=== PATIENT | male | born 1965 | race Two or more races ===

== ENCOUNTER 2024-02-18 10:23 | Outpatient (RCR) | payer MEDICAID, SELFPAY ==
[2024-01-26 10:04] LABS: Basophils % (Auto) 1 % (0-2.5); Eosinophils # (Auto) 0.1 Thou/mm3 (0.0-0.5); Eosinophils % (Auto) 1 % (0-10); Hematocrit 37.5 % (41.0-53.0); Immature Granulocytes % (Auto) 0 % (0-0); Immature Granulocytes Auto 0.01 Thou/mm3 (0.00-0.00); Lymphocytes # (Auto) 1.5 Thou/mm3 (1.0-4.8); Lymphocytes % (Auto) 37 % (10-50); Mean Corpuscular HGB Conc 34.7 g/dl (31.0-37.0); Mean Corpuscular Hemoglobin 30.1 pg (25.0-35.0); Mean Corpuscular Volume 87 fL (80-100); Monocytes # (Auto) 0.7 Thou/mm3 (0.0-0.8); Monocytes % (Auto) 18 % (0-12); Neutrophils # (Auto) 1.7 Thou/mm3 (1.8-7.7); Neutrophils % (Auto) 43 % (37-80); Nucleated Red Blood Cell % 0 /100 WBC (0); Platelet Count 111 Thou/mm3 (140-440); RDW Standard Deviation 48.7 fL (35.1-43.9); Red Blood Count 4.32 Miln/mm3 (4.50-5.90); White Blood Count 3.9 Thou/mm3 (3.8-10.6)
[2024-01-26 10:44] LABS: Alanine Aminotransferase 23 U/L (10-49); Albumin, Serum 4.7 gm/dL (3.5-5.0); Albumin/Globulin Ratio 1.6 (1.2-2.2); Alkaline Phosphatase 72 U/L (46-116); Anion Gap 8 (7-16); Aspartate Amino Transferase 21 U/L (0-34); BUN/Creatinine Ratio 18 Ratio (12-20); Blood Urea Nitrogen 16 mg/dL (9-23); Calcium 9.6 mg/dL (8.3-10.6); Calcium (Corrected) 9.6 mg/dL (8.5-10.1); Carbon Dioxide 25.7 mMol/L (20.0-31.0); Chloride 97 mMol/L (98-107); Creatinine (Component) 0.9 mg/dL (0.6-1.3); Globulin 2.9 gm/dL (2.3-3.5); Glucose 117 mg/dL (74-106); Osmolality,Calculated 264 (275-295); Potassium 3.1 mMol/L (3.4-5.1); Sodium 131 mMol/L (136-145); Total Protein 7.6 gm/dL (5.7-8.2); eGFR > 60 See Note
[2024-01-26 10:47] LABS: Carcinoembryonic Antigen 4.7 ng/mL (0.0-5.0)
[2024-02-09 09:06] LABS: Basophils % (Auto) 1 % (0-2.5); Eosinophils % (Auto) 1 % (0-10); Hematocrit 38.2 % (41.0-53.0); Hemoglobin 13.4 g/dL (13.5-16.0); Immature Granulocytes % (Auto) 0 % (0-0); Immature Granulocytes Auto 0.01 Thou/mm3 (0.00-0.00); Lymphocytes # (Auto) 1.3 Thou/mm3 (1.0-4.8); Lymphocytes % (Auto) 44 % (10-50); Mean Corpuscular HGB Conc 35.1 g/dl (31.0-37.0); Mean Corpuscular Hemoglobin 30.6 pg (25.0-35.0); Mean Corpuscular Volume 87 fL (80-100); Monocytes # (Auto) 0.6 Thou/mm3 (0.0-0.8); Monocytes % (Auto) 21 % (0-12); Neutrophils % (Auto) 33 % (37-80); Nucleated Red Blood Cell % 0 /100 WBC (0); Platelet Count 97 Thou/mm3 (140-440); RDW Standard Deviation 48.2 fL (35.1-43.9); Red Blood Count 4.38 Miln/mm3 (4.50-5.90)
[2024-02-09 09:26] LABS: Alanine Aminotransferase 27 U/L (10-49); Albumin, Serum 4.8 gm/dL (3.5-5.0); Albumin/Globulin Ratio 1.7 (1.2-2.2); Alkaline Phosphatase 76 U/L (46-116); Anion Gap 7 (7-16); Aspartate Amino Transferase 24 U/L (0-34); BUN/Creatinine Ratio 20 Ratio (12-20); Blood Urea Nitrogen 16 mg/dL (9-23); Calcium 9.6 mg/dL (8.3-10.6); Calcium (Corrected) 9.6 mg/dL (8.5-10.1); Carbon Dioxide 25.2 mMol/L (20.0-31.0); Chloride 97 mMol/L (98-107); Creatinine (Component) 0.8 mg/dL (0.6-1.3); Globulin 2.9 gm/dL (2.3-3.5); Glucose 108 mg/dL (74-106); Osmolality,Calculated 261 (275-295); Potassium 3.5 mMol/L (3.4-5.1); Sodium 129 mMol/L (136-145); Total Protein 7.7 gm/dL (5.7-8.2); eGFR > 60 See Note
[2024-02-09 09:28] LABS: Carcinoembryonic Antigen 4.8 ng/mL (0.0-5.0)
[2024-02-16 08:56] LABS: Basophils % (Auto) 1 % (0-2.5); Eosinophils # (Auto) 0.1 Thou/mm3 (0.0-0.5); Eosinophils % (Auto) 1 % (0-10); Hematocrit 38.9 % (41.0-53.0); Hemoglobin 13.6 g/dL (13.5-16.0); Immature Granulocytes % (Auto) 3 % (0-0); Immature Granulocytes Auto 0.13 Thou/mm3 (0.00-0.00); Lymphocytes # (Auto) 2.1 Thou/mm3 (1.0-4.8); Lymphocytes % (Auto) 43 % (10-50); Mean Corpuscular Hemoglobin 30.7 pg (25.0-35.0); Mean Corpuscular Volume 88 fL (80-100); Monocytes # (Auto) 0.9 Thou/mm3 (0.0-0.8); Monocytes % (Auto) 18 % (0-12); Neutrophils # (Auto) 1.7 Thou/mm3 (1.8-7.7); Neutrophils % (Auto) 34 % (37-80); Nucleated Red Blood Cell % 0 /100 WBC (0); Platelet Count 163 Thou/mm3 (140-440); RDW Standard Deviation 49.7 fL (35.1-43.9); Red Blood Count 4.43 Miln/mm3 (4.50-5.90); White Blood Count 4.9 Thou/mm3 (3.8-10.6)
[2024-02-16 09:14] LABS: Alanine Aminotransferase 32 U/L (10-49); Albumin, Serum 4.8 gm/dL (3.5-5.0); Albumin/Globulin Ratio 1.7 (1.2-2.2); Alkaline Phosphatase 70 U/L (46-116); Anion Gap 8 (7-16); Aspartate Amino Transferase 27 U/L (0-34); BUN/Creatinine Ratio 20 Ratio (12-20); Bilirubin,Total 0.7 mg/dL (0.3-1.2); Blood Urea Nitrogen 16 mg/dL (9-23); Calcium 9.8 mg/dL (8.3-10.6); Calcium (Corrected) 9.8 mg/dL (8.5-10.1); Carbon Dioxide 24.3 mMol/L (20.0-31.0); Chloride 101 mMol/L (98-107); Creatinine (Component) 0.8 mg/dL (0.6-1.3); Globulin 2.9 gm/dL (2.3-3.5); Glucose 104 mg/dL (74-106); Osmolality,Calculated 267 (275-295); Potassium 3.3 mMol/L (3.4-5.1); Sodium 133 mMol/L (136-145); Total Protein 7.7 gm/dL (5.7-8.2); eGFR > 60 See Note
[2024-02-16 09:15] LABS: Carcinoembryonic Antigen 4.7 ng/mL (0.0-5.0)
== END 2024-02-21 23:59 | disposition home or self-care (01) ==
LOC: SCTC 10:23
PROVIDERS: PCP Family Medicine; Referring Provider Family Medicine; Visit Provider Internal Medicine Hematology & Oncology
DX: Z51.11 Encounter for antineoplastic chemotherapy (principal); C18.7 Malignant neoplasm of sigmoid colon; Z90.49 Acquired absence of other specified parts of digestive tract; R91.8 Other nonspecific abnormal finding of lung field; D50.9 Iron deficiency anemia, unspecified; E11.9 Type 2 diabetes mellitus without complications; E78.00 Pure hypercholesterolemia, unspecified; I10 Essential (primary) hypertension
CPT/HCPCS: 36591; 80053; 82378; 85025; 96366; 96367; 96368; 96372; 96411; 96413; 96415; 96416; A4216; J0640; J1100; J1453; J1642; J2405; J2506; J3490; J7060; J9190; J9263

== ENCOUNTER 2024-03-08 17:59 | Emergency (ER) | payer MEDICAID, SELFPAY ==
[2024-03-08 18:00] VITALS: BMI 30.1
[2024-03-08 18:19] VITALS: BP 165/89; PULSE 105; RESP 18; TEMP 37.1; O2SAT 96
--- NOTE | 2024-03-08 18:28 | EKG_ITS ---
[facility] (Formerly [facility]) Test Date: 2024-03-08 Pat Name: JAKE CORNEJO Department: Room: - Gender: Male Site Project Manager: : 1965 Requested By: ED Temporary Provider Order Number: [id number] Reading MD: ED Temporary Provider Measurements Intervals [place] Rate: 100 P: 47 KS: 161 QRS: 12 QRSD: 106 T: 43 QT: 342 QTc: 442 Interpretive Statements SINUS TACHYCARDIA ABNORMAL RHYTHM ECG Compared to ECG 09/08/2023 09:20:33 Sinus rhythm no longer present Incomplete right bundle-branch block no longer present /store/S0/[id number].pdf
--- NOTE | 2024-03-08 18:30 | XR_ITS ---
Examination: PA lateral chest 2 views Technique: Upright PA lateral chest 2 views Exam date and time: March 08, 2000 2418.9 hours Comparison September 09, 2023 Indications difficulty breathing today. Findings: Normal heart size No pneumonia or pulmonary edema Right subclavian Port-A-Cath tip satisfactory position Impression: No pneumonia or pulmonary edema
--- NOTE | 2024-03-08 18:31 | PD.EDRME ---
Rapid Medical Screening Exam RME Arrival date/time: 03/08/24 17:59 58 year old male present to ED for c/o sob. I have greeted and performed a focused initial assessment of this patient. A comprehensive ED assessment and evaluation of the patient, analysis of all test results, and completion of the medical decision making process will be conducted by additional ED providers. Chief Complaint: Shortness of Breath/Dyspnea Time Seen by Provider: 03/08/24 18:23 Vital signs: Vital Signs Temperature 98.8 F 03/08/24 18:19 Pulse Rate 105 H 03/08/24 18:19 Respiratory Rate 18 03/08/24 18:19 Blood Pressure 165/89 H 03/08/24 18:19 Pulse Oximetry (%) 96 03/08/24 18:19 Oxygen Delivery Method Room Air 03/08/24 18:19
[2024-03-08 19:36] LABS: Basophils % (Auto) 0 % (0-2.5); Eosinophils # (Auto) 0.3 Thou/mm3 (0.0-0.5); Eosinophils % (Auto) 2 % (0-10); Hematocrit 36.1 % (41.0-53.0); Hemoglobin 12.6 g/dL (13.5-16.0); Immature Granulocytes % (Auto) 6 % (0-0); Immature Granulocytes Auto 0.81 Thou/mm3 (0.00-0.00); Lymphocytes # (Auto) 2.3 Thou/mm3 (1.0-4.8); Lymphocytes % (Auto) 17 % (10-50); Mean Corpuscular HGB Conc 34.9 g/dl (31.0-37.0); Mean Corpuscular Hemoglobin 31.3 pg (25.0-35.0); Mean Corpuscular Volume 90 fL (80-100); Monocytes # (Auto) 2.3 Thou/mm3 (0.0-0.8); Monocytes % (Auto) 17 % (0-12); Neutrophils # (Auto) 8.3 Thou/mm3 (1.8-7.7); Neutrophils % (Auto) 59 % (37-80); Nucleated Red Blood Cell # 0.02 Thou/mm3 (0.00-0.00); Nucleated Red Blood Cell % 0 /100 WBC (0); Platelet Count 152 Thou/mm3 (140-440); RDW Standard Deviation 50.1 fL (35.1-43.9); Red Blood Count 4.02 Miln/mm3 (4.50-5.90)
[2024-03-08 19:54] LABS: B-Type Natriuretic Peptide 30 pg/mL (0-100)
[2024-03-08 19:58] LABS: Alanine Aminotransferase 24 U/L (10-49); Albumin, Serum 4.6 gm/dL (3.5-5.0); Albumin/Globulin Ratio 1.5 (1.2-2.2); Alkaline Phosphatase 151 U/L (46-116); Anion Gap 10 (7-16); Aspartate Amino Transferase 24 U/L (0-34); BUN/Creatinine Ratio 17 Ratio (12-20); Bilirubin,Total 0.3 mg/dL (0.3-1.2); Blood Urea Nitrogen 15 mg/dL (9-23); Calcium 9.2 mg/dL (8.3-10.6); Calcium (Corrected) 9.2 mg/dL (8.5-10.1); Carbon Dioxide 24.4 mMol/L (20.0-31.0); Chloride 99 mMol/L (98-107); Creatinine (Component) 0.9 mg/dL (0.6-1.3); Estimated Creatinine Clearance 102.4 mL/min (>60); Globulin 3.1 gm/dL (2.3-3.5); Glucose 119 mg/dL (74-106); Lipase 38 U/L (12-53); Osmolality,Calculated 268 (275-295); Potassium 3.5 mMol/L (3.4-5.1); Sodium 133 mMol/L (136-145); Total Protein 7.7 gm/dL (5.7-8.2); Troponin I < 0.020 ng/mL (0.0-0.045); eGFR > 60 See Note
--- NOTE | 2024-03-08 21:55 | EDNOTE_ITS ---
ED SOB =RME/HPI General Chief Complaint: Shortness of Breath/Dyspnea Stated Complaint: SOB ON GEO Time Seen by Provider: 03/08/24 18:23 Arrival date/time: 03/08/24 17:59 Limitations: no limitations RME / HPI RME / HPI Narrative: 03/08/24 17:59 58 year old male present to ED for c/o sob. I have greeted and performed a focused initial assessment of this patient. A comprehensive ED assessment and evaluation of the patient, analysis of all test results, and completion of the medical decision making process will be conducted by additional ED providers. ----- Dr. Gutierrez's Main ED Evaluation: 58yo male with pmhx hypertension, hyperlipidemia, prediabetes, colon CA s/p resection on chemotherapy presents to the ED for a chief complaint of shortness of breath x 2 days. Patient reports an associated cough, nasal congestion, and a sore throat. He denies any fever, chills, chest pain, abdominal pain or any other associated symptoms. No known allergies. Oncologist is Dr. Anne. Patient was informed that his Neupogen may cause him to experience shortness of breath. Related Data Home Medications ?Medication ?Instructions ?Recorded ?Confirmed atorvastatin 20 mg tablet 20 mg PO QDAY 06/23/23 10/08/23 lisinopril 20 1 tab PO QDAY 06/23/23 10/08/23 mg-hydrochlorothiazide 25 mg tablet Previous Rx's ?Medication ?Instructions ?Recorded albuterol sulfate 90 mcg/actuation 2 inh inhalation Q6H PRN shortness 03/08/24 breath activated powder inhaler of breath #1 ea Allergies Allergy/AdvReac Type Severity Reaction Status Date / Time No Known Allergies Allergy Verified 03/08/24 18:01 Review of Systems Review of Systems Systems Reviewed: All systems reviewed, normal except as documented ED Exam General Limitations: Present no limitations General appearance: Present alert and in no apparent distress Head Head exam: Present atraumatic Eye Eye exam: Present normal appearance, PERRL and EOMI ENT ENT exam: Present normal oropharynx, mucous membranes moist and other (rhinorrhea; clear throat without erythema) Neck Neck exam: Present normal inspection, full ROM and trachea midline Chest Chest inspection: Present normal inspection and symmetric chest wall rise Respiratory Respiratory exam: Present normal lung sounds bilaterally; Absent wheezes or accessory muscle use Cardiovascular Cardiovascular exam: Present regular rate, normal rhythm and normal heart sounds Abdominal Exam Abdominal exam: Present soft and normal bowel sounds Extremities Exam Extremities exam: Present normal inspection and full ROM; Absent pedal edema Back Exam Back exam: Present normal inspection and full ROM Neurological Exam Neurological exam: Present alert, oriented X3 and CN II-XII intact Psychiatric Psychiatric exam: Present normal affect and normal mood Skin Skin exam: Present warm, dry, intact and normal color Course Course Course Narrative: CXR is ordered for determining the etiology of shortness of breath. Quality Measures none Orders Category Date Time Status Bedside COVID-19 Antigen Test NOW Care 03/08/24 18:30 Completed Bedside Influenza A&B Antigen Test NOW Care 03/08/24 18:[address] Screening NOW Care 03/08/24 22:03 Completed EKG (ED ONLY) *Do not use* NOW Care 03/08/24 18:[address] angio chest Stat Exams 03/08/24 22:02 Completed EKG (ED Only) Stat Exams 03/08/24 18:28 Draft XR chest 2V Stat Exams 03/08/24 18:30 Completed BNP [B-Type Natriuretic Peptide] Stat Lab 03/08/24 19:20 Completed CBC Stat Lab 03/08/24 19:20 Completed CMP [Comprehensive Metabolic Panel] Stat Lab 03/08/24 19:20 Completed Lipase Stat Lab 03/08/24 19:20 Completed Troponin I Stat Lab 03/08/24 19:20 Completed Albuterol/Ipratr Rt Xochitl [Duoneb Rt Xochitl] Med 03/08/24 22:04 Discontinued 3 ml INH X1 ONE Vital Signs Vital signs: Vital Signs Temperature 98.8 F 03/08/24 18:19 Pulse Rate 105 H 03/08/24 18:19 Respiratory Rate 18 03/08/24 18:19 Blood Pressure 165/89 H 03/08/24 18:19 Pulse Oximetry (%) 96 03/08/24 18:19 Oxygen Delivery Method Room Air 03/08/24 18:19 Pulse ox is 96% on room air, which is normal according to my interpretation. Shortness of Breath / Dyspnea Patient data External records reviewed:: [facility] previous records (Per chart review, patient was seen here on 06/22/23 for anemia.) Clinical information provided by:: patient Social determinants that could affect healthcare access:: none Patient has the following chronic illnesses:: hypertension, hyperlipidemia, prediabetes, colon CA s/p resection How is presenting disease/condition affected by chronic disease/condition?: uneffected by Evaluation data The following diagnostics were reviewed and interpreted by me:: lab results, r adiology exam(s) and EKG tracing(s) Lab and/or radiology exams considered but not ordered:: none Interpretation Summary: WBC count is elevated at 14.0, Sodium is 133, Troponin is normal, BNP is normal, according to my interpretation. EKG done at 1838, sinus tachycardia, rate of 100, good R wave progression, ST-T changes in lead III, QTc: 391, unchanged from previous EKG done in 08/2023, according to my interpretation. ------ I have personally reviewed the radiology data and agree with the radiologist's interpretation below: [facility] Report Signed Patient: JAKE CORNEJO [employer]. Record#: [id number] Birthdate: 1965 Age/Sex: 58 / M Location: [facility] Attending Dr: Ordering Physician: Robert Lorenz PA-C Date of Service: 03/08/24 Procedure(s): XR chest 2V Accession Number(s): [id number] cc: Dave Machado MD; Michael Hicks MD; Robert Lorenz PA-C~ Examination: PA lateral chest 2 views Technique: Upright PA lateral chest 2 views Exam date and time: March 08, 2000 2418.9 hours Comparison September 09, 2023 Indications difficulty breathing today. Findings: Normal heart size No pneumonia or pulmonary edema Right subclavian Port-A-Cath tip satisfactory position Impression: No pneumonia or pulmonary edema Dictated By: Michael Hicks MD Signed By: <Electronically signed by Michael Hicks MD in [place]> 03/08/242001 ------ [facility] Report Signed Patient: JAKE CORNEJO [employer]. Record#: [id number] Birthdate: 1965 Age/Sex: 58 / M Location: [facility] Attending Dr: Ordering Physician: Marti Velasquez MD Date of Service: 03/08/24 Procedure(s): CT angio chest Accession Number(s): [id number] cc: Dave Machado MD; Michael Hicks MD; Marti Velasquez MD~ Examination: CTA chest with intravenous contrast 2-D reconstructions 3-D reconstructions, vascular Date and time of exam: March 08, 2024 10:28 PM Comparison August 27, 2023 Indications: Diagnosis malignant neoplasm colon, undergoing chemotherapy, chest pain today CTDI: vol (mGy) 24.2 DLP: (mGycm) 541 Technique: Multiple axial sections of the thorax have been obtained. 3 mm slice thickness, from below the hemidiaphragms to above the apices of the lungs. Mediastinal and lung density settings have been obtained. 2-D sagittal and coronal reconstructions. 3-D angiographic renderings, 3-D volume renderings, 3D post processing, vascular maximum intensity projections obtained. Contrast administered is 100 cc Isovue-370 intravenous. Low dose protocols were performed. One or more of the following dose reduction techniques were used; automated exposure control, adjustment of the mA and/or KV according to patient size, use of iterative reconstruction technique. Findings: No thoracic aortic aneurysm dilatation or dissection No pulmonary artery emboli No paratracheal tracheobronchial or bronchopulmonary adenopathy Stable bilateral noncalcified pulmonary nodules No interval pneumonia or pulmonary edema No interval liver lesions No gallstones No pancreatic or adrenal mass Kidneys partially visualized no hydronephrosis Moderate thoracic spondylosis Impression: Negative for pulmonary artery emboli Stable bilateral pulmonary nodules No interval pneumonia or pulmonary edema Dictated By: Michael Hicks MD Signed By: <Electronically signed by Michael Hicks MD in OV> 03/08/24 1358 Medications / Prescriptions Medications or Prescriptions considered but not ordered:: none Medication administrations:: Medication Administration History Discontinued Medications Albuterol/Ipratropium (Albuterol/Ipratropium (Duoneb) Rt Xochitl 3 Ml Nebu) 3 ml INH X1 ONE Stop: 03/08/24 22:05 Last Admin: 03/08/24 22:39 Dose: 3 ml Documented By: HALLEY see above Consultations Consultation(s) initiated? (list below): No Diagnosis Shortness of Breath Differential Diagnosis: community acquired pneumonia, pulmonary embolism and other (bacteremia) Most likely diagnosis given after review of the tests above:: see below Admission Indicated Admission indicated?: not indicated Admission Request Was there a request for admission?: No Disposition Plan Disposition Plan: Discharge Discharge Attestation Discharge Attestation: The patient and all family members were given an opportunity to ask questions and understood the discharge instructions. Discharge instructions specifically effects, indications for sooner follow up or return to the emergency department, and the expected course of current diagnosis. Patient condition: Stable Critical Care Time Critical Care Time Critical Care Time: Yes Total Critical Care Time (min.): 35 Attestation: The high probability of sudden, clinically significant deterioration in the patient?s condition required the highest level of my preparedness to intervene urgently. The services I provided to this patient were to treat and/or prevent clinically significant deterioration. Services included the following: chart data review, reviewing nursing notes and/or old charts, documentation time, bilingual sales consultant collaboration regarding findings and treatment options, medication orders and management, direct patient care, vital sign assessments and ordering, interpreting and reviewing diagnostic studies and lab tests. Aggregate critical care time includes only time during which I was engaged in work directly related to the patient?s care, as described above, whether at bedside or elsewhere in the Emergency Department. It did not include time spent performing other reported procedures or the services of residents, students, nurses or physician assistants. Discharge Plan Plan Patient Disposition: HOME (Self Care) Patient condition on transfer: Stable Prescriptions/Referrals Prescriptions/Med Rec: New albuterol sulfate 90 mcg/actuation aerosol powdr breath activated 2 inh inhalation Q6H PRN (Reason: shortness of breath) Qty: 1 0RF No Action atorvastatin 20 mg Tablet 20 mg PO QDAY lisinopril-hydrochlorothiazide 20-25 mg Tablet 1 tab PO QDAY Referrals: Dave Machado MD [Primary Care Provider] - 03/11/24 Problem List Clinical Impression: URI (upper respiratory infection) Patient/Caregiver Discharge Instructions Education Materials: ED URI, Viral, No Abx (Adult) Additional Instructions: You can use the inhaler as needed. For congestion. You could also take [id number] cough medicine. Please return to the emergency department for any worsening symptoms, fever greater than 102, you feel worse, dizzy, chest pain, shortness of breath, or any other concerns. Please see your doctor know that you were seen here in the emergency department. Print Language: Mongolian Stand Alone Forms: Kristi Award Info., Patient Portal Info Letter
--- NOTE | 2024-03-08 22:02 | XR_ITS ---
Examination: CTA chest with intravenous contrast 2-D reconstructions 3-D reconstructions, vascular Date and time of exam: March 08, 2024 10:28 PM Comparison August 27, 2023 Indications: Diagnosis malignant neoplasm colon, undergoing chemotherapy, chest pain today CTDI: vol (mGy) 24.2 DLP: (mGycm) 541 Technique: Multiple axial sections of the thorax have been obtained. 3 mm slice thickness, from below the hemidiaphragms to above the apices of the lungs. Mediastinal and lung density settings have been obtained. 2-D sagittal and coronal reconstructions. 3-D angiographic renderings, 3-D volume renderings, 3D post processing, vascular maximum intensity projections obtained. Contrast administered is 100 cc Isovue-370 intravenous. Low dose protocols were performed. One or more of the following dose reduction techniques were used; automated exposure control, adjustment of the mA and/or KV according to patient size, use of iterative reconstruction technique. Findings: No thoracic aortic aneurysm dilatation or dissection No pulmonary artery emboli No paratracheal tracheobronchial or bronchopulmonary adenopathy Stable bilateral noncalcified pulmonary nodules No interval pneumonia or pulmonary edema No interval liver lesions No gallstones No pancreatic or adrenal mass Kidneys partially visualized no hydronephrosis Moderate thoracic spondylosis Impression: Negative for pulmonary artery emboli Stable bilateral pulmonary nodules No interval pneumonia or pulmonary edema
[2024-03-08 22:09] VITALS: BP 160/94; PULSE 109; RESP 19; TEMP 36.8; O2SAT 98
--- NOTE | 2024-03-08 22:28 | PC.NURSE ---
Pt taken to CT.
[2024-03-08] MEDS: ALBUTEROL/IPRATROPIUM (Duoneb) RT SOL 3 ML NEBU INH (22:39)
[2024-03-08 22:42] VITALS: PULSE 103; RESP 20; O2SAT 99
[2024-03-08 23:31] VITALS: RESP 18
== END 2024-03-08 23:33 | disposition home or self-care (01) ==
PROVIDERS: Physician Assistant; Emergency Provider Emergency Medicine; PCP Family Medicine
DX: J06.9 Acute upper respiratory infection, unspecified (principal); R91.8 Other nonspecific abnormal finding of lung field; R00.0 Tachycardia, unspecified; I10 Essential (primary) hypertension
CPT/HCPCS: 36415; 71046; 71275; 80053; 83690; 83880; 84484; 85025; 87400; 87811; 93005; 94640; 99285; A4649; A9270; Q9967

== ENCOUNTER 2024-03-18 11:29 | Outpatient (RCR) | payer MEDICAID, SELFPAY ==
--- NOTE | 2024-02-25 05:34 | CTCFLWUP_ITS ---
Patient: JAKE BOONE : 1965 Page 6 of 6 FOLLOW UP NOTE DATE OF SERVICE 02/24/2024 NAME: JAKE BOONE ACCOUNT: [id number] : 1965 AGE: 58 DIAGNOSIS: Stage IIIc (pT3, PN 2, MX), MMR proficient, well-differentiated adenocarcinoma of the sigm oid colon. S/p sigmoid colectomy (06/25/2023) on adjuvant chemotherapy here for follow-up .patient is on cycle 9 treatment Abdominal wall incision is healed by secondary intention. CT-guided biopsy of the lung nodule is negative for malignancy (10/08/2023). Currently on adjuvant chemotherapy with modified FOLFOX 6 (10/27/2023) Multiple pulmonary nodules (08/27/2023) Type 2 diabetes. Hypercholesterolemia. Hypertension. REASON FOR TODAY?S VISIT: This is office follow-up visit. Mr. Boone is here at [facility]. He is clinically doing very well. So far he had 8 cycles of modified FOLFOX 6. Tolerated very well. He is scheduled to receive a total of 12 cycles in the adjuvant sett ing. Did not have any significant side effects. Did not have any nausea, vomiting or diarrhea. Did not have any significant tingling numbness in the fingers or feet. Has good appetite and good energy levels. Ambulating well without any help. HISTORY OF PRESENT ILLNESS: Jake Boone is a 58-year-old SPA speaking male with hi story of type 2 diabetes, hypertension, hypercholesterolemia has been having rectal bleeding since 2022. 06/21/2023: Mr. Boone was seen in the emergency room here at [facility] because of for rectal bleeding. He was admitted to the hospital. 06/22/2023: CT scan of the abdomen and pelvis with IV contrast 06/23/2023: Mr. Boone had a colonoscopy which showed a partially obstructing tumor in the sigm oid colon. Biopsies were taken. 06/25/2023: Mr. Boone had sigmoid colectomy 06/26/2023: CEA 1.7. 07/16/2023: Hemoglobin 9.8, MCV 88, WBC 9.8, ANC 7.2, platelets 425,000, creatinine 0.66, AST 23, ALT 115, iron saturation 6%, folate 18 point, CEA 4.0, B12 638, ferritin 50. 07/31/2023: PET/CT scan? 08/27/2023: CT scan of the chest without IV contrast 10/08/2023: CT-guided biopsy of the left lower lobe pulmonary nodule? 10/27/2023: The patient is started on adjuvant modified FOLFOX 6 PAST MEDICAL HISTORY: Adenocarcinoma sigmoid colon - dx 06/23/23 Hyperlipidemia HTN PAST SURGICAL HISTORY: Sigmoid colectomy wtih incidental appendectomy - 06/25/23 - [facility] MEDICATIONS: 1. atorvastatin - 20 mg 1 tab Daily 2. docusate sodium - 100 mg 1 tab Every 12 Hours 3. hydrocodone-acetaminophen - 5-325 mg 1 tab Every 6 Hours 4. lisinopril-hydrochlorothiazide - 20-25 mg 1 tab Daily Medications Last Reconciled by Lay Guy MD on 11/18/2023 ALLERGIES: No Known Drug Allergies REVIEW OF SYSTEMS: Neurological: No headache, seizures or blurring of vision. Gastrointestinal: No nausea, vomiting, diarrhea or constipation. Cardiovascular: No palpitations or angina pains. Respiratory: No cough, chest pain or shortness of breath. PHYSICAL EXAMINATION: VITAL SIGNS: Temperature?99.6, B/P?168/95, Oxygen?Saturation?98% Weight?213?lbs (Change?since?11/12/23 :?-7.2?lbs) PAIN: 0 - No pain Alert oriented x 4 MOUTH: Oral cavity is dry. CHEST: Clear to auscultation. No wheezes or rales audible. CARDIAC: Rhythm regular, no murmurs or gallops present. ABDOMEN: Soft. No hepatomegaly. No splenomegaly. About 2 inches long wide open surgical wound is pre sent below the umbilicus. It is packed with a gauze at this time. EXTREMITIES: No pedal edema or cyanosis. ASSESSMENT: #1 stage III colon cancer on adjuvant therapy Patient is on cycle 9 of chemotherapy patient will be continued on chemotherapy with FOLFOX Mr. Boone is started on adjuvant modified FOLFOX 6 on 10/27/2023. The plan is to give him a t otal of 12 cycles in the adjuvant setting. CT-guided biopsy of the left lower lobe pulmonary nodule negative for malignancy. Multiple pulmonary nodules as documented on the CT scan of the chest without contrast. Patient is obtaining chemo through her port Stage IIIc (pT3, PN 2, MX), MMR proficient well-differentiated adenocarcinoma of the sigmoid colon. S/p sigmoid colectomy (06/25/2023) #2 iron deficiency anemia. Stable. #3 type 2 diabetes. Stable follow with the PCP #4 hypercholesterolemia stable follow with the PCP. #5 hypertension stable follow-up with PCP. RTC to the clinic with a CBC CMP and CEA Will do CT scan once patient has completed all the chemotherapy Electronically Signed by: {Object.Sanct_ID*PnP.NameFL@M}, {Object.Sanct_ID*PnP.Suffix@U} D: {Object.Sanct_Date} T: {Object.Sanct_Time} CC: PCP: Dave Machado Referring: Dave Machado This document was completed utilizing speech recognition software. Grammatical errors, random word in sertions, pronoun errors, and incomplete sentences are an occasional consequence of this system due t o software limitations, ambient noise, and hardware issues. Any formal questions or concerns about th e content, text or information contained within the body of this dictation should be directly address ed to the provider for clarification.
[2024-02-27 11:34] LABS: Basophils # (Auto) 0.1 Thou/mm3 (0.0-0.2); Basophils % (Auto) 1 % (0-2.5); Eosinophils # (Auto) 0.1 Thou/mm3 (0.0-0.5); Eosinophils % (Auto) 1 % (0-10); Immature Granulocytes % (Auto) 10 % (0-0); Immature Granulocytes Auto 0.93 Thou/mm3 (0.00-0.00); Lymphocytes # (Auto) 2.2 Thou/mm3 (1.0-4.8); Lymphocytes % (Auto) 23 % (10-50); Mean Corpuscular HGB Conc 34.2 g/dl (31.0-37.0); Mean Corpuscular Hemoglobin 30.8 pg (25.0-35.0); Mean Corpuscular Volume 90 fL (80-100); Monocytes # (Auto) 0.9 Thou/mm3 (0.0-0.8); Monocytes % (Auto) 9 % (0-12); Neutrophils # (Auto) 5.3 Thou/mm3 (1.8-7.7); Neutrophils % (Auto) 56 % (37-80); Nucleated Red Blood Cell % 0 /100 WBC (0); Platelet Count 118 Thou/mm3 (140-440); RDW Standard Deviation 50.4 fL (35.1-43.9); Red Blood Count 4.22 Miln/mm3 (4.50-5.90); White Blood Count 9.5 Thou/mm3 (3.8-10.6)
[2024-02-27 11:58] LABS: Alanine Aminotransferase 36 U/L (10-49); Albumin, Serum 4.8 gm/dL (3.5-5.0); Albumin/Globulin Ratio 1.6 (1.2-2.2); Alkaline Phosphatase 118 U/L (46-116); Anion Gap 11 (7-16); Aspartate Amino Transferase 25 U/L (0-34); BUN/Creatinine Ratio 16 Ratio (12-20); Bilirubin,Total 0.5 mg/dL (0.3-1.2); Blood Urea Nitrogen 13 mg/dL (9-23); Calcium 9.2 mg/dL (8.3-10.6); Calcium (Corrected) 9.2 mg/dL (8.5-10.1); Carbon Dioxide 24.9 mMol/L (20.0-31.0); Chloride 97 mMol/L (98-107); Creatinine (Component) 0.8 mg/dL (0.6-1.3); Glucose 108 mg/dL (74-106); Osmolality,Calculated 267 (275-295); Potassium 3.3 mMol/L (3.4-5.1); Sodium 133 mMol/L (136-145); Total Protein 7.8 gm/dL (5.7-8.2); eGFR > 60 See Note
[2024-02-27 12:02] LABS: Carcinoembryonic Antigen 3.6 ng/mL (0.0-5.0)
[2024-03-15 11:02] LABS: Basophils # (Auto) 0.1 Thou/mm3 (0.0-0.2); Basophils % (Auto) 1 % (0-2.5); Eosinophils # (Auto) 0.1 Thou/mm3 (0.0-0.5); Eosinophils % (Auto) 1 % (0-10); Hematocrit 38.3 % (41.0-53.0); Hemoglobin 13.1 g/dL (13.5-16.0); Immature Granulocytes % (Auto) 2 % (0-0); Immature Granulocytes Auto 0.14 Thou/mm3 (0.00-0.00); Lymphocytes # (Auto) 1.7 Thou/mm3 (1.0-4.8); Lymphocytes % (Auto) 24 % (10-50); Mean Corpuscular HGB Conc 34.2 g/dl (31.0-37.0); Mean Corpuscular Hemoglobin 30.9 pg (25.0-35.0); Mean Corpuscular Volume 90 fL (80-100); Monocytes # (Auto) 0.7 Thou/mm3 (0.0-0.8); Monocytes % (Auto) 9 % (0-12); Neutrophils # (Auto) 4.4 Thou/mm3 (1.8-7.7); Neutrophils % (Auto) 62 % (37-80); Nucleated Red Blood Cell % 0 /100 WBC (0); Platelet Count 88 Thou/mm3 (140-440); RDW Standard Deviation 50.9 fL (35.1-43.9); Red Blood Count 4.24 Miln/mm3 (4.50-5.90); White Blood Count 7.1 Thou/mm3 (3.8-10.6)
[2024-03-15 11:15] LABS: Alanine Aminotransferase 34 U/L (10-49); Albumin, Serum 4.5 gm/dL (3.5-5.0); Albumin/Globulin Ratio 1.5 (1.2-2.2); Alkaline Phosphatase 111 U/L (46-116); Anion Gap 9 (7-16); Aspartate Amino Transferase 35 U/L (0-34); BUN/Creatinine Ratio 16 Ratio (12-20); Bilirubin,Total 0.5 mg/dL (0.3-1.2); Blood Urea Nitrogen 18 mg/dL (9-23); Calcium 9.6 mg/dL (8.3-10.6); Calcium (Corrected) 9.6 mg/dL (8.5-10.1); Carbon Dioxide 25.5 mMol/L (20.0-31.0); Chloride 100 mMol/L (98-107); Creatinine (Component) 1.1 mg/dL (0.6-1.3); Glucose 136 mg/dL (74-106); Osmolality,Calculated 272 (275-295); Potassium 3.4 mMol/L (3.4-5.1); Sodium 134 mMol/L (136-145); Total Protein 7.5 gm/dL (5.7-8.2); eGFR > 60 See Note
[2024-03-15 11:17] LABS: Carcinoembryonic Antigen 3.8 ng/mL (0.0-5.0)
== END 2024-03-23 23:59 | disposition home or self-care (01) ==
LOC: SCTC 11:29
PROVIDERS: PCP Family Medicine; Referring Provider Family Medicine; Visit Provider Internal Medicine Hematology & Oncology
DX: Z51.11 Encounter for antineoplastic chemotherapy (principal); C18.7 Malignant neoplasm of sigmoid colon; Z90.49 Acquired absence of other specified parts of digestive tract; R91.8 Other nonspecific abnormal finding of lung field; D50.9 Iron deficiency anemia, unspecified; E11.9 Type 2 diabetes mellitus without complications; E78.00 Pure hypercholesterolemia, unspecified; I10 Essential (primary) hypertension
CPT/HCPCS: 36591; 80053; 82378; 85025; 96366; 96367; 96368; 96372; 96374; 96411; 96413; 96415; 96416; 99213; A4216; J0640; J1100; J1453; J1642; J2405; J2506; J3490; J9190; J9263; G0463

== ENCOUNTER 2024-04-23 08:24 | Outpatient (RCR) | payer MEDICAID, SELFPAY ==
[2024-03-29 10:08] LABS: Basophils # (Auto) 0.1 Thou/mm3 (0.0-0.2); Basophils % (Auto) 1 % (0-2.5); Eosinophils # (Auto) 0.2 Thou/mm3 (0.0-0.5); Eosinophils % (Auto) 2 % (0-10); Hematocrit 37.6 % (41.0-53.0); Hemoglobin 13.2 g/dL (13.5-16.0); Immature Granulocytes % (Auto) 2 % (0-0); Immature Granulocytes Auto 0.23 Thou/mm3 (0.00-0.00); Lymphocytes # (Auto) 2.1 Thou/mm3 (1.0-4.8); Lymphocytes % (Auto) 20 % (10-50); Mean Corpuscular HGB Conc 35.1 g/dl (31.0-37.0); Mean Corpuscular Hemoglobin 31.4 pg (25.0-35.0); Mean Corpuscular Volume 90 fL (80-100); Monocytes % (Auto) 9 % (0-12); Neutrophils # (Auto) 6.9 Thou/mm3 (1.8-7.7); Neutrophils % (Auto) 66 % (37-80); Nucleated Red Blood Cell % 0 /100 WBC (0); Platelet Count 107 Thou/mm3 (140-440); RDW Standard Deviation 50.2 fL (35.1-43.9); White Blood Count 10.5 Thou/mm3 (3.8-10.6)
[2024-03-29 10:40] LABS: Alanine Aminotransferase 39 U/L (10-49); Albumin, Serum 4.6 gm/dL (3.5-5.0); Albumin/Globulin Ratio 1.4 (1.2-2.2); Alkaline Phosphatase 126 U/L (46-116); Anion Gap 9 (7-16); Aspartate Amino Transferase 48 U/L (0-34); BUN/Creatinine Ratio 14 Ratio (12-20); Bilirubin,Total 0.6 mg/dL (0.3-1.2); Blood Urea Nitrogen 13 mg/dL (9-23); Calcium 9.1 mg/dL (8.3-10.6); Calcium (Corrected) 9.1 mg/dL (8.5-10.1); Chloride 96 mMol/L (98-107); Creatinine (Component) 0.9 mg/dL (0.6-1.3); Globulin 3.4 gm/dL (2.3-3.5); Glucose 132 mg/dL (74-106); Osmolality,Calculated 266 (275-295); Potassium 2.9 mMol/L (3.4-5.1); Sodium 132 mMol/L (136-145); eGFR > 60 See Note
[2024-03-30 09:25] LABS: Potassium 3.5 mMol/L (3.4-5.1)
[2024-03-30 11:32] LABS: Glucose Estimated Average 126 mg/dL (80-131)
[2024-04-12 16:23] LABS: Basophils % (Auto) 1 % (0-2.5); Eosinophils # (Auto) 0.1 Thou/mm3 (0.0-0.5); Eosinophils % (Auto) 2 % (0-10); Hematocrit 37.4 % (41.0-53.0); Immature Granulocytes % (Auto) 0 % (0-0); Immature Granulocytes Auto 0.01 Thou/mm3 (0.00-0.00); Lymphocytes # (Auto) 1.4 Thou/mm3 (1.0-4.8); Lymphocytes % (Auto) 28 % (10-50); Mean Corpuscular HGB Conc 34.8 g/dl (31.0-37.0); Mean Corpuscular Hemoglobin 30.9 pg (25.0-35.0); Mean Corpuscular Volume 89 fL (80-100); Monocytes # (Auto) 1.1 Thou/mm3 (0.0-0.8); Monocytes % (Auto) 21 % (0-12); Neutrophils # (Auto) 2.5 Thou/mm3 (1.8-7.7); Neutrophils % (Auto) 48 % (37-80); Nucleated Red Blood Cell % 0 /100 WBC (0); Platelet Count 103 Thou/mm3 (140-440); RDW Standard Deviation 48.2 fL (35.1-43.9); Red Blood Count 4.21 Miln/mm3 (4.50-5.90); White Blood Count 5.1 Thou/mm3 (3.8-10.6)
[2024-04-12 16:43] LABS: Carcinoembryonic Antigen 4.2 ng/mL (0.0-5.0)
[2024-04-12 16:48] LABS: Alanine Aminotransferase 33 U/L (10-49); Albumin, Serum 4.7 gm/dL (3.5-5.0); Albumin/Globulin Ratio 1.3 (1.2-2.2); Alkaline Phosphatase 80 U/L (46-116); Anion Gap 13 (7-16); Aspartate Amino Transferase 44 U/L (0-34); BUN/Creatinine Ratio 21 Ratio (12-20); Blood Urea Nitrogen 17 mg/dL (9-23); Calcium 9.6 mg/dL (8.3-10.6); Calcium (Corrected) 9.6 mg/dL (8.5-10.1); Carbon Dioxide 24.1 mMol/L (20.0-31.0); Chloride 94 mMol/L (98-107); Creatinine (Component) 0.8 mg/dL (0.6-1.3); Globulin 3.5 gm/dL (2.3-3.5); Glucose 96 mg/dL (74-106); Osmolality,Calculated 264 (275-295); Potassium 2.8 mMol/L (3.4-5.1); Sodium 131 mMol/L (136-145); Total Protein 8.2 gm/dL (5.7-8.2); eGFR > 60 See Note
[2024-04-13 10:22] LABS: Potassium 3.5 mMol/L (3.4-5.1)
[2024-04-15 12:06] LABS: Alanine Aminotransferase 53 U/L (10-49); Albumin, Serum 4.5 gm/dL (3.5-5.0); Albumin/Globulin Ratio 1.4 (1.2-2.2); Alkaline Phosphatase 71 U/L (46-116); Anion Gap 9 (7-16); Aspartate Amino Transferase 60 U/L (0-34); BUN/Creatinine Ratio 26 Ratio (12-20); Blood Urea Nitrogen 21 mg/dL (9-23); Calcium 9.6 mg/dL (8.3-10.6); Calcium (Corrected) 9.6 mg/dL (8.5-10.1); Carbon Dioxide 24.7 mMol/L (20.0-31.0); Chloride 95 mMol/L (98-107); Creatinine (Component) 0.8 mg/dL (0.6-1.3); Globulin 3.3 gm/dL (2.3-3.5); Glucose 96 mg/dL (74-106); Osmolality,Calculated 261 (275-295); Potassium 3.1 mMol/L (3.4-5.1); Sodium 129 mMol/L (136-145); Total Protein 7.8 gm/dL (5.7-8.2); eGFR > 60 See Note
[2024-04-23 09:12] LABS: Basophils % (Auto) 1 % (0-2.5); Eosinophils % (Auto) 1 % (0-10); Hematocrit 35.9 % (41.0-53.0); Hemoglobin 12.8 g/dL (13.5-16.0); Immature Granulocytes % (Auto) 0 % (0-0); Immature Granulocytes Auto 0.02 Thou/mm3 (0.00-0.00); Lymphocytes # (Auto) 1.2 Thou/mm3 (1.0-4.8); Lymphocytes % (Auto) 20 % (10-50); Mean Corpuscular HGB Conc 35.7 g/dl (31.0-37.0); Mean Corpuscular Hemoglobin 31.5 pg (25.0-35.0); Mean Corpuscular Volume 88 fL (80-100); Monocytes # (Auto) 0.8 Thou/mm3 (0.0-0.8); Monocytes % (Auto) 13 % (0-12); Neutrophils % (Auto) 67 % (37-80); Nucleated Red Blood Cell % 0 /100 WBC (0); Platelet Count 107 Thou/mm3 (140-440); RDW Standard Deviation 46.5 fL (35.1-43.9); Red Blood Count 4.06 Miln/mm3 (4.50-5.90); White Blood Count 6.1 Thou/mm3 (3.8-10.6)
[2024-04-23 09:43] LABS: Alanine Aminotransferase 54 U/L (10-49); Albumin, Serum 4.5 gm/dL (3.5-5.0); Albumin/Globulin Ratio 1.3 (1.2-2.2); Alkaline Phosphatase 81 U/L (46-116); Anion Gap 12 (7-16); Aspartate Amino Transferase 60 U/L (0-34); BUN/Creatinine Ratio 20 Ratio (12-20); Bilirubin,Total 0.8 mg/dL (0.3-1.2); Blood Urea Nitrogen 18 mg/dL (9-23); Calcium 9.4 mg/dL (8.3-10.6); Calcium (Corrected) 9.4 mg/dL (8.5-10.1); Carbon Dioxide 23.9 mMol/L (20.0-31.0); Chloride 96 mMol/L (98-107); Creatinine (Component) 0.9 mg/dL (0.6-1.3); Globulin 3.6 gm/dL (2.3-3.5); Glucose 147 mg/dL (74-106); Osmolality,Calculated 269 (275-295); Potassium 2.9 mMol/L (3.4-5.1); Sodium 132 mMol/L (136-145); Total Protein 8.1 gm/dL (5.7-8.2); eGFR > 60 See Note
[2024-04-23 09:44] LABS: Carcinoembryonic Antigen 4.7 ng/mL (0.0-5.0)
[2024-04-26 11:12] LABS: Alanine Aminotransferase 41 U/L (10-49); Albumin, Serum 4.5 gm/dL (3.5-5.0); Albumin/Globulin Ratio 1.2 (1.2-2.2); Alkaline Phosphatase 90 U/L (46-116); Anion Gap 9 (7-16); Aspartate Amino Transferase 55 U/L (0-34); BUN/Creatinine Ratio 20 Ratio (12-20); Bilirubin,Total 0.6 mg/dL (0.3-1.2); Blood Urea Nitrogen 16 mg/dL (9-23); Calcium 9.5 mg/dL (8.3-10.6); Calcium (Corrected) 9.5 mg/dL (8.5-10.1); Carbon Dioxide 27.3 mMol/L (20.0-31.0); Chloride 94 mMol/L (98-107); Creatinine (Component) 0.8 mg/dL (0.6-1.3); Globulin 3.8 gm/dL (2.3-3.5); Glucose 139 mg/dL (74-106); Osmolality,Calculated 264 (275-295); Potassium 2.8 mMol/L (3.4-5.1); Sodium 130 mMol/L (136-145); Total Protein 8.3 gm/dL (5.7-8.2); eGFR > 60 See Note
[2024-04-26 13:55] LABS: Alanine Aminotransferase 39 U/L (10-49); Albumin, Serum 4.4 gm/dL (3.5-5.0); Albumin/Globulin Ratio 1.2 (1.2-2.2); Alkaline Phosphatase 87 U/L (46-116); Anion Gap 9 (7-16); Aspartate Amino Transferase 50 U/L (0-34); BUN/Creatinine Ratio 20 Ratio (12-20); Bilirubin,Total 0.6 mg/dL (0.3-1.2); Blood Urea Nitrogen 14 mg/dL (9-23); Carbon Dioxide 26.2 mMol/L (20.0-31.0); Chloride 95 mMol/L (98-107); Creatinine (Component) 0.7 mg/dL (0.6-1.3); Globulin 3.6 gm/dL (2.3-3.5); Glucose 96 mg/dL (74-106); Osmolality,Calculated 261 (275-295); Potassium 3.1 mMol/L (3.4-5.1); Sodium 130 mMol/L (136-145); eGFR > 60 See Note
== END 2024-04-23 23:59 | disposition home or self-care (01) ==
LOC: SCTC 08:24
PROVIDERS: PCP Family Medicine; Referring Provider Family Medicine; Visit Provider Internal Medicine Hematology & Oncology
DX: Z51.11 Encounter for antineoplastic chemotherapy (principal); C18.7 Malignant neoplasm of sigmoid colon; Z90.49 Acquired absence of other specified parts of digestive tract; R91.8 Other nonspecific abnormal finding of lung field; D50.9 Iron deficiency anemia, unspecified; E11.9 Type 2 diabetes mellitus without complications; E78.00 Pure hypercholesterolemia, unspecified; I10 Essential (primary) hypertension
CPT/HCPCS: 36591; 80053; 82378; 83036; 84132; 85025; 96366; 96367; 96368; 96411; 96413; 96415; 96416; A4216; J0640; J1100; J1453; J1642; J2405; J7050; J7060; J9190; J9263

== ENCOUNTER 2024-04-27 07:02 | Outpatient (RCR) | payer MEDICAID, SELFPAY ==
[2024-04-27 07:49] LABS: Alanine Aminotransferase 40 U/L (10-49); Albumin, Serum 4.4 gm/dL (3.5-5.0); Albumin/Globulin Ratio 1.2 (1.2-2.2); Alkaline Phosphatase 88 U/L (46-116); Anion Gap 9 (7-16); Aspartate Amino Transferase 52 U/L (0-34); BUN/Creatinine Ratio 13 Ratio (12-20); Bilirubin,Total 0.7 mg/dL (0.3-1.2); Blood Urea Nitrogen 10 mg/dL (9-23); Calcium 9.3 mg/dL (8.3-10.6); Calcium (Corrected) 9.3 mg/dL (8.5-10.1); Carbon Dioxide 26.3 mMol/L (20.0-31.0); Chloride 94 mMol/L (98-107); Creatinine (Component) 0.8 mg/dL (0.6-1.3); Globulin 3.6 gm/dL (2.3-3.5); Glucose 105 mg/dL (74-106); Osmolality,Calculated 257 (275-295); Potassium 3.2 mMol/L (3.4-5.1); Sodium 129 mMol/L (136-145); eGFR > 60 See Note
[2024-04-30 06:44] LABS: ACTH, Plasma* 20 pg/mL (6-50)
[2024-05-03 06:43] LABS: Aldosterone* 5 ng/dL
== END 2024-05-21 23:59 | disposition home or self-care (01) ==
LOC: SCTC 07:02
PROVIDERS: PCP Family Medicine; Referring Provider Family Medicine; Visit Provider Internal Medicine Hematology & Oncology
DX: E87.6 Hypokalemia (principal); C18.7 Malignant neoplasm of sigmoid colon; Z90.49 Acquired absence of other specified parts of digestive tract; Z92.21 Personal history of antineoplastic chemotherapy; D50.9 Iron deficiency anemia, unspecified; E11.9 Type 2 diabetes mellitus without complications; E78.00 Pure hypercholesterolemia, unspecified; I10 Essential (primary) hypertension
CPT/HCPCS: 36591; 80053; 82024; 82088; 96360; A4216; J1642; J7030

== ENCOUNTER 2024-06-30 12:20 | Day surgery (SDC) | payer MEDICAID, SELFPAY ==
[2024-06-30] VITALS (11 sets, daily range): BP systolic 119–143; BP diastolic 69–95; PULSE 63–97; RESP 12–25; TEMP 36.9–37; O2SAT 10–100; BMI 30.1
[2024-06-30] MEDS: RINGERS LACTATED 1000 ML 1,000 ML 125 ML IV (13:47)
[2024-06-30] MEDS: fentaNYL CIT INJ 50 mCg/ML AMP 2ML (ASD USE ONLY) IV (13:54)
[2024-06-30] MEDS: MIDAZOLAM INJ 1 MG/ML VIAL 2 ML (ASD USE ONLY) 2 MG IV (13:56)
== END 2024-06-30 14:52 | disposition home or self-care (01) ==
PROVIDERS: PCP Family Medicine; Referring Provider Surgery; Visit Provider Surgery
PROC: 0DBE8ZX Excision of Large Intestine, Via Natural or Artificial Opening Endoscopic, Diagnostic (ICD-10-PCS; CPT 45380; principal; 2024-06-30 13:00)
DX: Z12.11 Encounter for screening for malignant neoplasm of colon (principal)
CPT/HCPCS: 45378; A4217; J2250; J3010; J7120

== ENCOUNTER 2024-07-10 09:29 | Emergency (ER) | payer MEDICAID, SELFPAY ==
[2024-07-10 09:31] VITALS: BMI 30.8
[2024-07-10 09:48] VITALS: BP 175/84; PULSE 90; RESP 18; TEMP 36.7; O2SAT 98
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
[2024-07-10] MEDS: LIDOCAINE HCL 1% 20 ML VIAL INFL (11:23)
== END 2024-07-10 11:29 | disposition home or self-care (01) ==
PROVIDERS: Emergency Provider Emergency Medicine; PCP Family Medicine
DX: S01.81XA Laceration without foreign body of other part of head, initial encounter (principal); V49.40XA Driver injured in collision with unspecified motor vehicles in traffic accident, initial encounter
CPT/HCPCS: 12013; 70450; 99284; J3490

== ENCOUNTER 2024-07-13 14:47 | Outpatient (RCR) | payer MEDICAID, SELFPAY ==
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
== END 2024-07-21 23:59 | disposition home or self-care (01) ==
LOC: SCTC 14:47
PROVIDERS: PCP Family Medicine; Referring Provider Family Medicine; Visit Provider Internal Medicine Hematology & Oncology
DX: Z08 Encounter for follow-up examination after completed treatment for malignant neoplasm (principal); Z85.038 Personal history of other malignant neoplasm of large intestine; Z90.49 Acquired absence of other specified parts of digestive tract; Z92.21 Personal history of antineoplastic chemotherapy; R91.8 Other nonspecific abnormal finding of lung field; Z86.2 Personal history of diseases of the blood and blood-forming organs and certain disorders involving the immune mechanism; E11.9 Type 2 diabetes mellitus without complications; E78.00 Pure hypercholesterolemia, unspecified; I10 Essential (primary) hypertension
CPT/HCPCS: 99213; G0463

== ENCOUNTER 2024-08-05 07:09 | Outpatient (RCR) | payer MEDICAID, SELFPAY ==
[2024-08-05 09:29] VITALS: BMI 30.7
== END 2024-08-21 23:59 | disposition home or self-care (01) ==
LOC: SCTC 07:09
PROVIDERS: PCP Family Medicine; Referring Provider Family Medicine; Visit Provider Internal Medicine Hematology & Oncology
DX: Z08 Encounter for follow-up examination after completed treatment for malignant neoplasm (principal); Z85.038 Personal history of other malignant neoplasm of large intestine; Z90.49 Acquired absence of other specified parts of digestive tract; Z92.21 Personal history of antineoplastic chemotherapy; Z86.2 Personal history of diseases of the blood and blood-forming organs and certain disorders involving the immune mechanism; E11.9 Type 2 diabetes mellitus without complications; E78.00 Pure hypercholesterolemia, unspecified; I10 Essential (primary) hypertension
CPT/HCPCS: 36591; A4216; J1642

== ENCOUNTER 2025-01-12 12:40 | Outpatient (RCR) | payer BC, SELFPAY ==
[2025-01-11 13:48] LABS: Basophils # (Auto) 0.0 Thou/mm3 (0.0-0.2); Basophils % (Auto) 0 % (0-2.5); Eosinophils # (Auto) 0.1 Thou/mm3 (0.0-0.5); Eosinophils % (Auto) 1 % (0-10); Hematocrit 40.0 % (41.0-53.0); Hemoglobin 13.9 g/dL (13.5-16.0); Immature Granulocytes Auto 0.03 Thou/mm3 (0.00-0.00); Lymphocytes # (Auto) 2.2 Thou/mm3 (1.0-4.8); Lymphocytes % (Auto) 25 % (10-50); Mean Corpuscular HGB Conc 34.8 g/dl (31.0-37.0); Mean Corpuscular Hemoglobin 30.4 pg (25.0-35.0); Mean Corpuscular Volume 88 fL (80-100); Monocytes # (Auto) 0.8 Thou/mm3 (0.0-0.8); Monocytes % (Auto) 9 % (0-12); Neutrophils # (Auto) 5.5 Thou/mm3 (1.8-7.7); Neutrophils % (Auto) 64 % (37-80); Nucleated Red Blood Cell # 0.00 Thou/mm3 (0.00-0.00); Nucleated Red Blood Cell % 0 /100 WBC (0); Platelet Count 197 Thou/mm3 (140-440); RDW Standard Deviation 40.5 fL (35.1-43.9); Red Blood Count 4.57 Miln/mm3 (4.50-5.90); White Blood Count 8.6 Thou/mm3 (3.8-10.6)
[2025-01-11 14:05] LABS: Alanine Aminotransferase 23 U/L (10-49); Albumin, Serum 5.2 gm/dL (3.4-4.8); Albumin/Globulin Ratio 2.2 (1.2-2.2); Alkaline Phosphatase 63 U/L (46-116); Anion Gap 11 (7-16); Aspartate Amino Transferase 23 U/L (0-34); BUN/Creatinine Ratio 19 Ratio (12-20); Bilirubin,Total 0.6 mg/dL (0.3-1.2); Blood Urea Nitrogen 15 mg/dL (9-23); Calcium 9.4 mg/dL (8.3-10.6); Calcium (Corrected) 9.4 mg/dL (8.5-10.1); Carbon Dioxide 24.2 mMol/L (20.0-31.0); Chloride 98 mMol/L (98-107); Creatinine (Component) 0.8 mg/dL (0.6-1.3); Globulin 2.4 gm/dL (2.3-3.5); Glucose 107 mg/dL (74-106); Osmolality,Calculated 267 (275-295); Potassium 3.4 mMol/L (3.4-5.1); Sodium 133 mMol/L (136-145); Total Protein 7.6 gm/dL (5.7-8.2); eGFR > 60 See Note
[2025-01-11 14:07] LABS: Carcinoembryonic Antigen 3.5 ng/mL (0.0-5.0)
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
== END 2025-01-21 23:59 | disposition home or self-care (01) ==
LOC: SCTC 12:40
PROVIDERS: PCP Family Medicine; Referring Provider Family Medicine; Visit Provider Internal Medicine Hematology & Oncology
DX: C18.7 Malignant neoplasm of sigmoid colon (principal); Z92.21 Personal history of antineoplastic chemotherapy; Z90.49 Acquired absence of other specified parts of digestive tract; E11.9 Type 2 diabetes mellitus without complications; E78.00 Pure hypercholesterolemia, unspecified; I10 Essential (primary) hypertension
CPT/HCPCS: 36591; 80053; 82378; 85025; 99212; A4216; J1642; G0463

== ENCOUNTER → 2025-02-09 | Outpatient (CLI) | payer BC, SELFPAY ==
--- NOTE | 2025-02-09 16:00 | XR_ITS ---
Examination: CT chest with intravenous contrast CT abdomen with intravenous contrast CT pelvis with intravenous contrast 2-D coronal and sagittal reconstructions Time of exam: February 09, 2025, 1635 hours, comparison March 08, 2024 CT chest, CT chest August 27, 2023, PET/CT scan July 31, 2023 INDICATIONS: Diagnosis malignant neoplasm of the colon, CT chest March 08, 2024 bilateral pulmonary nodules, 5 mm pulmonary nodule right upper lobe 18 mm pulmonary nodule left lower lobe 4 mm pulmonary nodule right lower lobe, 4 mm pulmonary nodule right middle lobe CT chest with intravenous contrast CT abdomen with intravenous contrast CT pelvis with intravenous contrast 2-D coronal and sagittal reconstructions CTDI: vol (mGy) : 8.64 DLP: (mGycm): 676 Technique: Multiple axial images of the chest, abdomen and pelvis with intravenous contrast, 3.0 mm slice thickness. Images obtained post intravenous injection Isovue 370 60 cc. 2-D sagittal and coronal reconstructions. Low dose protocols were performed. One or more of the following dose reduction techniques were used; automated exposure control, adjustment of the mA and/or KV according to patient size, use of iterative reconstruction technique. Findings: No thoracic aortic aneurysmal dilatation or dissection No pulmonary artery filling defects No paratracheal tracheobronchial or bronchopulmonary adenopathy Stable 18 mm pulmonary nodule left lower lobe New 4 mm pleural-based pulmonary nodule left upper lobe image 52 New 2 mm pulmonary nodule posterior right upper lobe image 80 New pulmonary nodule posterior left midlung 6.4 mm New 1.5 mm pulmonary nodule anterior right upper lobe image 141 New 3 mm pulmonary nodule left midlung image 160 New 10 mm pulmonary nodule posterior right lung image 220 No interval liver or splenic lesions Contracted gallbladder No pancreatic mass No adrenal gland mass No hydronephrosis Interval 25 mm left common iliac lymph node compared to PET/CT scan July 31, 2023 Interval 5 mm 4 mm lymph nodes adjacent to the sigmoid colon compared to the PET scan July 31, 2023 Urinary bladder intact Significant osteopenia with advanced degenerative disc disease L5-S1 Osseous structures are demineralized IMPRESSION: Progression of pulmonary nodular metastatic disease dating to CT chest August 27, 2023 Interval 25 mm left common iliac lymph node compared with PET/CT scan July 31, 2023 Interval 5 mm 4 mm lymph nodes adjacent to the sigmoid colon compared to PET/CT scan July 31, 2023 Consider repeat PET/CT scan follow-up
== END | disposition home or self-care (01) ==
PROVIDERS: PCP Family Medicine; Referring Provider Internal Medicine Hematology & Oncology; Visit Provider Internal Medicine Hematology & Oncology
DX: C78.00 Secondary malignant neoplasm of unspecified lung (principal); C18.7 Malignant neoplasm of sigmoid colon
CPT/HCPCS: 71260; 74177; A4649; Q9967

== ENCOUNTER 2025-02-14 10:49 | Outpatient (RCR) | payer BC, SELFPAY ==
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
== END 2025-02-20 23:59 | disposition home or self-care (01) ==
LOC: SCTC 10:49
PROVIDERS: PCP Family Medicine; Referring Provider Family Medicine; Visit Provider Internal Medicine Hematology & Oncology
DX: C18.7 Malignant neoplasm of sigmoid colon (principal); R91.1 Solitary pulmonary nodule; E11.9 Type 2 diabetes mellitus without complications; E78.00 Pure hypercholesterolemia, unspecified; I10 Essential (primary) hypertension; Z90.49 Acquired absence of other specified parts of digestive tract; Z92.21 Personal history of antineoplastic chemotherapy
CPT/HCPCS: 99212; G0463